=== PATIENT | male | born 1940 | race Caucasian/White ===

== ENCOUNTER 2016-06-20 09:04 | Day surgery (SDC) | payer OTHER ==
[~2016-06-20] VITALS: Ht 179.1 cm; Wt 87.3 kg
[~2016-06-20 09:04] MED LIST: ALLOPURINOL100 MG PO; ASPIR-LOW81 MG PO; ASPIRIN325 MG PO; ATROVENT; ATROVENT H200 INHALA IH; COLACE100 MG PO; COZAAR50 MG PO; FINASTERIDE5 MG; FLOMAX0.4 MG PO; FLOVENT; FOLIC ACID0.8 MG PO; LEVOTHYROXINE88 MCG PO; LO-DOSE ASPIRIN81 M1 PO; MAXAIR; PROSCAR5 MG PO; PROTONIX40 MG PO; STOOL SOFTENER100 MG PO; SYNTHROID100 MCG PO; SYNTHROID88 MCG PO; THEO-24300 MG PO; THEO-DUR,THEOC300 MG PO; Vicodin,Lortab 5/500 PO
[2016-06-20 09:44] VITALS: BP 135/84
[2016-06-20 12:50] VITALS: BP 166/73
[2016-06-20 13:36] VITALS: BP 147/71
== END 2016-06-20 13:54 | disposition home or self-care (01) ==
LOC: SDC 09:04
DX: G56.01 Carpal tunnel syndrome, right upper limb (principal); M72.0 Palmar fascial fibromatosis [Dupuytren]; I10 Essential (primary) hypertension; M06.9 Rheumatoid arthritis, unspecified; J45.909 Unspecified asthma, uncomplicated; K21.9 Gastro-esophageal reflux disease without esophagitis; Z86.73 Personal history of transient ischemic attack (TIA), and cerebral infarction without residual deficits; Z85.46 Personal history of malignant neoplasm of prostate; Z85.810 Personal history of malignant neoplasm of tongue; E03.9 Hypothyroidism, unspecified; Z79.82 Long term (current) use of aspirin; Z82.49 Family history of ischemic heart disease and other diseases of the circulatory system; Z80.9 Family history of malignant neoplasm, unspecified; Z82.61 Family history of arthritis
CPT/HCPCS: 88304; J0690; J2250; J2405; J3010; S0020